=== PATIENT | female | born 1955 | race Caucasian/White ===

== ENCOUNTER 2019-09-04 11:11 | Day surgery (SDC) | payer BC, SELFPAY ==
[2019-09-01 11:53] VITALS: BMI 23.8
[2019-09-04] VITALS (7 sets, daily range): BP systolic 96–130; BP diastolic 64–74; PULSE 78–93; RESP 13–21; TEMP 36.2–36.6; O2SAT 94–97; BMI 23.8
[2019-09-04] MEDS: LACTATED RINGERS 1,000 ML 100 ML IV (12:12)
--- NOTE | 2019-09-04 14:09 | PM.PREOP ---
Pre-operative Note Interval Note History & Physical reviewed/Exam performed by Physician: Yes Changes to H&P: No
--- NOTE | 2019-09-04 14:10 | PM.OP.1 ---
Operative Date/Time/Diagnoses Date of procedure: 09/04/19 Time of procedure: 14:10 Pre-op diagnosis: Left foot painful midfoot hardware, recurring tailor's bunionette, painful third hammertoe Post-op diagnosis: same Procedure & Clinicians Procedure: 1. Left midfoot hardware removal 2. Left revision tailor's bunionectomy fifth toe [id number] 3. Left thrid toe partial phalangectomy intermediate phalanx Same procedure as scheduled: Yes Indications: Painful retained hardware, tailor's bunionette, and hammertoe. Conservative measures failed to alleviate the pain and the desire was to have surgery at this time. We spoke of the risks, potential complications, alternatives, as well as expected outcomes. Consent was signed, no contraindications to the procedure at this time. Surgeon: Dian Cain Click Yes if Unassisted: Yes Anesthesia Type: General Operative Notes Closure Type: primary Specimen(s): none sent Estimated Blood Loss (mL): 20 Blood products transfused: none Procedure in detail: The patient was brought to the operating room and placed on the operating table in the supine position. The tourniquet was placed about the left ankle. Well-padded, appropriately aligned. After induction of anesthesia the left foot and ankle were prepped and draped in the usual aseptic manner. The tourniquet was inflated. Incision was made over the 1st metatarsal cuneiform joint, on the more medial aspect following the line of her prior incision. The incision was deepened through subcutaneous tissues being careful to identify and retract all vital neurovascular structures. All bleeders were cauterized and ligated as necessary. Immediately, the plate and screws were noted and in place. Each screw was able to be removed, x4, and upon identification each portion of the screw was found intact. The plate itself was also able to be removed and found intact. The recess where the wedge was placed was cortically strong. There was no motion at this site. Next, an incision was made over the 5th metatarsal phalangeal joint. The incision was deepened through subcutaneous tissues being careful to identify and retract all vital neural and vascular structures. All bleeders were cauterized and ligated as necessary. The 5th MTPJ capsule was incised and this exposed the underlying prominent 5th metatarsal remaining lateral eminence. She has a very flexible foot but there still was a segment of the lateral eminence that was able to be safely resected. A saw was used to reduce this and gently smooth the edges of the resection. The area was irrigated with copious amounts of normal sterile saline. Next an incision was made over the dorsal 3rd toe. The incision was deepened through subcutaneous tissues being careful to identify and retract all vital neural and vascular structures. All bleeders were cauterized and ligated as necessary. The proximal phalangeal and distal interphalangeal joints were reviewed and it appeared that the intermediate phalanx had an enlargement that was pressing right where the prominence was seen on the outside of the medial 3rd toe. This was able to be resected as a partial phalangectomy at the distal portion of the intermediate phalanx and a rasp was used to smooth the remaining distal 5th phalangeal edge as well as intermediate phalanx. The foot was loaded and the toe did not appear to have as prominent a pressure spot in that area. The tourniquet was deflated. A prompt hyperemic response was seen to the foot. Subcutaneous and capsular closure to each of the incisions was performed using Vicryl and nylon to the skin. A sterile lightly compressive dressing was placed on the foot. The patient was then placed in a postoperative shoe and transferred to PACU with vital signs stable and vascular status intact to the foot. Complications: none Post-operative Condition: stable Disposition: PACU Plan for aftercare: Plan: Following a period of postoperative monitoring, the patient be discharged home on written and oral postoperative instructions including keeping the dressing dry and intact, avoiding significant ambulation on the foot, icing and elevating the foot when seated home. DVT prevention techniques have been reviewed. She has crutches and will use those. She is directed to partial touchdown to no weight on the foot for approximately 10-14 days based on her healing and swelling following the procedure. Once sutures from the skin are removed, she may begin full weight-bearing. Timeframe for removal of the sutures and reappointment is based on the discretion of the provider, and she will be seeing our physician's optical assistant for that 1st visit on September 11, 2019. She also has additional appointment scheduled for 09/29/2019.
[2019-09-04] MEDS: CLINDAMYCIN 600 MG/50 ML PIGGYBACK 50 MG IV (14:39)
--- NOTE | 2019-09-04 15:04 | SUR.OPER ---
Supine on padded OR bed, head on pillow, arms secured on padded arm boards at <90 degrees abduction, legs uncrossed, safety belt at waist , tape over blanket over lower right leg, left leg draped free with gell bump under left hip .
[2019-09-04] MEDS: BUPIVACAINE 0.5% (PF) VIAL 30 ML INJ (15:17)
[2019-09-04] MEDS: DICLOFENAC 75 MG DR TABLET PO (16:21)
--- NOTE | 2019-09-04 16:36 | SUR.PHASEII ---
Patient eating crackers and drinking tea without difficulty. All belongings returned to patient. Awaiting family member to arrive for discharge. Patient denies pain.
--- NOTE | 2019-09-04 17:06 | SUR.PHASEII ---
Patient tolerating tea and crackers without difficulty. Assisted patient to bathroom via wheelchair. All belongings returned to patient, crutches to patient also. Awaiting ride home.
== END 2019-09-04 17:16 | disposition home or self-care (01) ==
PROVIDERS: PCP Family Medicine; Visit Provider Podiatrist
PROC: 0QBP0ZZ Excision of Left Metatarsal, Open Approach (ICD-10-PCS; CPT 28292; principal; 2019-09-04 12:45)
DX: T84.84XA Pain due to internal orthopedic prosthetic devices, implants and grafts, initial encounter (principal); M21.622 Bunionette of left foot; M20.42 Other hammer toe(s) (acquired), left foot; J45.909 Unspecified asthma, uncomplicated; E78.5 Hyperlipidemia, unspecified
CPT/HCPCS: 28110; 20680; 28160; J1100; J1885; J2250; J2405; J2704; J3010

== ENCOUNTER → 2020-03-03 11:47 | Outpatient (CLI) | payer BC, SELFPAY ==
--- NOTE | 2020-03-03 | DI.CT.S_ITS ---
PROCEDURE: CT ABDOMEN PELVIS W CON INDICATIONS: Unspecified abdominal pain TECHNIQUE: After the administration of oral and intravenous contrast, 5 mm thick sections acquired from the diaphragms to the symphysis. 5 mm thick coronal and sagittal reformats were performed. For radiation dose reduction, the following was used: automated exposure control, adjustment of mA and/or kV according to patient size. COMPARISON: None. FINDINGS: Image quality: Excellent. ABDOMEN: Lung bases: Lung bases are clear. Heart size is normal. Solid organs: Hepatic hypodense lesion, with appearance that raises the possibility of hemangioma although technically nonspecific, in the right hepatic lobe near the dome on image 14/2 measuring 1.1 cm. Mild hepatic steatosis. Gallbladder partially contracted otherwise unremarkable. Biliary system is non-dilated. Pancreas enhances normally. Subcentimeter poorly defined splenic focal hypodensity possibly cyst, however technically too small to characterize accurately.No adrenal nodules. Kidneys are normal in size and enhancement, without hydronephrosis. Peritoneum and bowel: Stomach, small bowel, and colon loops are normal in caliber and wall thickness. No free fluid or air. Appendix is not clearly identified however no suspicious pericecal inflammatory changes are seen. Nodes and vessels: No retroperitoneal or mesenteric adenopathy. Aorta and inferior vena cava are normal in caliber. Miscellaneous: No ventral hernias. PELVIS: Genitourinary: Bladder wall thickness is normal. Possible left-sided exophytic uterine fibroid although technically nonspecific and could be confirmed with pelvic ultrasound. Miscellaneous: No inguinal hernias or adenopathy. Bones: No suspicious bony lesions. Mild dextroscoliosis. No vertebral body compression fractures. IMPRESSION: Overall, no acute abnormality as above Presumed right hepatic hemangioma although technically nonspecific. This could be further confirmed with dedicated liver protocol MRI or CT. Further assessment and long-term surveillance with ultrasound can also be considered. Additional chronic and incidental findings as above. Dictated by: Serafin Pitts M.D. on 03/03/2020 at 15:17 Approved by: Serafin Pitts M.D. on 03/03/2020 at 15:30
== END ==
PROVIDERS: PCP Family Medicine; Referring Provider Family Medicine; Visit Provider Family Medicine
DX: R10.9 Unspecified abdominal pain (principal); K76.9 Liver disease, unspecified; K76.0 Fatty (change of) liver, not elsewhere classified; M41.9 Scoliosis, unspecified
CPT/HCPCS: 74177; Q9967